=== PATIENT | female | born 1945 | race Caucasian/White ===

== ENCOUNTER 2016-08-27 05:42 | Outpatient (CLI) | payer MEDICARE, OTHER ==
[~2016-08-27] VITALS: Ht 154.9 cm; Wt 54.0 kg
[2016-08-27] MEDS ORDERED: LEVO50TA6 PO (13:56)
== END 2016-08-27 14:00 ==
LOC: PREOP 05:42
PROVIDERS: ATTEND Surgery Pediatric Surgery
DX: Z01.818 Encounter for other preprocedural examination (principal); Z12.11 Encounter for screening for malignant neoplasm of colon

== ENCOUNTER 2016-08-29 08:44 | Day surgery (SDC) | payer MEDICARE, OTHER ==
[~2016-08-29] VITALS: Ht 154.9 cm; Wt 54.0 kg
[~2016-08-29 08:44] MED LIST: LEVO50TA6 PO
[2016-08-29] MEDS ORDERED: NS IV 500 ML 500 ML ONE (08:59)
[2016-08-29] MEDS ORDERED: LIDOCAINE JELLY 2% (XYLOCAINE) 5 ML TUBE MM PRN (09:00)
[2016-08-29] MEDS ORDERED: NS IV 500 ML 500 ML IV SCH (09:00)
[2016-08-29] MEDS ORDERED: FLUMAZENIL (ROMAZICON) 0.1 MG/ML 5 ML VIAL INJ PRN (09:00)
[2016-08-29] MEDS ORDERED: NALOXONE 0.4 MG/ML 1 ML (NARCAN) VIAL IVP PRN (09:00)
[2016-08-29 09:09] VITALS: BP 122/78
[2016-08-29] MEDS ORDERED: MIDAZOLAM 2 MG/2 ML (VERSED) VIAL ONE ×2 (09:12)
[2016-08-29] MEDS ORDERED: LIDOCAINE JELLY 2% (XYLOCAINE) 5 ML TUBE ONE (09:13)
[2016-08-29] MEDS ORDERED: fentaNYL INJECTION 100 MCG/2 ML AMP ONE (09:13)
[2016-08-29] MEDS: fentaNYL INJECTION 100 MCG/2 ML AMP IVP PRN ×2 (09:48→09:57)
[2016-08-29] MEDS: MIDAZOLAM 2 MG/2 ML (VERSED) VIAL IVP PRN ×2 (09:50→10:00)
--- NOTE | 2016-08-29 09:51 | Conscious Sedation/ASA ---
Conscious Sedation Pre-Proced Time Reviewed: 09:40 ASA Class: 2 Airway Mallampati Classification: (platinum appropriate class) I. II. III, IV Lungs Heart ASA score ASA 1: a normal healthy patient ASA 2: a patient with a mild systemic disease (mid diabetes, controlled hypertension, obesity ASA 3: a patient with a severe systemic disease that limits activity (angina , COPD, prior Myocardial infarction) ASA 4: a patient with an incapacitating disease that is a constant threat to life (CHF, renal failure) ASA 5: a moribund patient not expected to survive 24 hrs. (ruptured aneurysm) ASA 6: a declared brain patient whose organs are being harvested. For emergent operations, add the letter E after the classification Grade 2 Sedation Plan: Analgesia, Amnesia, Plan communicated to team members, Discussed options with patient/fam, Discussed risks with patient/fam Note The patient is an appropriate candidate to undergo the planned procedure, sedation, and anesthesia. The patient immediately re-assessed prior to indication. FORTUNATO SIFUENTES MD Aug 29, 2016 9:51 am
--- NOTE | 2016-08-29 09:51 | Progress Note-Pre Operative ---
Pre-Operative Progress Note H&P Reviewed The H&P was reviewed, patient examined and no changes noted. Date Seen by Provider: Aug 29, 2016 Time Seen by Provider: 09:40 Date H&P Reviewed: Aug 29, 2016 Time H&P Reviewed: 09:40 Pre-Operative Diagnosis: screening colonoscopy FORTUNATO SIFUENTES MD Aug 29, 2016 9:51 am
[2016-08-29] MEDS ORDERED: ACETAMINOPHEN 325 MG TABLET/CAPLET (TYLENOL) PO PRN (10:00)
[2016-08-29] MEDS ORDERED: ONDANSETRON 4 MG/2 ML (SDV) Z0FRAN IV PRN (10:00)
[2016-08-29] MEDS ORDERED: HYDROcodone/APAP 5 MG/325 MG (LORTAB) TAB PO PRN (10:00)
[2016-08-29] MEDS ORDERED: morphine INJ 10 MG/ML 1ML (SYR OR VIAL) IV PRN (10:00)
[2016-08-29 10:30] VITALS: BP 109/66
--- NOTE | 2016-08-29 10:35 | Progress Note-Post Operative ---
Post-Operative Progess Note Surgeon (s)/Cage Tender (s) Surgeon FORTUNATO SIFUENTES MD Cage Tender: none Pre-Operative Diagnosis screening colonoscopy Post-Operative Diagnosis normal colon and rectum Procedure & Operative Findings Date of Procedure 08/29/16 Procedure Performed/Findings Colonoscopy Anesthesia Type CS Estimated Blood Loss Estimated blood loss (mL): minimal Specimens/Packing Specimens Removed none FORTUNATO SIFUENTES MD Aug 29, 2016 10:34 am
--- NOTE | 2016-08-29 10:37 | Discharge Inst-Surgical ---
D/C Lap Instructions-BEAR Follow Up 10 years Activity as tolerated High Fiber Diet 25g or more per day Avoid Alcohol, Caffeine, Spicy Gamaliel and Acid foods. Drink 64 fluid oz or more of fluids per day. Symptoms to Report: Fever over 101 degree F, Nausea/Vomiting If any problems/questions: Contact your physician or go to Emergency Room FORTUNATO SIFUENTES MD Aug 29, 2016 10:37 am
[2016-08-29 11:00] VITALS: BP 119/69
[2016-08-29 11:08] VITALS: BP 119/69
--- NOTE | 2016-08-29 11:40 | OPERATIVE REPORT ---
DATE OF SERVICE: 08/29/2016 ATTENDING PRIMARY CARE PHYSICIAN: Dr. Kayla Mckinley PREOPERATIVE DIAGNOSIS: Screening colonoscopy. POSTOPERATIVE DIAGNOSIS: Normal colon and rectum. PROCEDURE: Colonoscopy. SURGEON: Dr. Schmitt ANESTHESIA: Conscious sedation. ESTIMATED BLOOD LOSS: Minimal. FINDINGS: Normal anus, rectum and colon. No polyps or any neoplasms identified. DISPOSITION: The patient tolerated the procedure well. INDICATION FOR PROCEDURE: The patient is a 70-year-old female in need of a screening colonoscopy. She has not had a colonoscopy up to this point in her life. She reports that she is doing well and does not report any issues with diarrhea or constipation, as well as no red blood per rectum or any dark, tarry stools. She also does not report any family history of colon cancer. DESCRIPTION OF PROCEDURE: The patient was brought to the endoscopy suite, laid in the left lateral decubitus position. After adequate IV pain and sedative medications and conscious sedation anesthesia, a digital rectal examination was performed. No significant hemorrhoids were identified. Normal sphincter tone was felt and there were no palpable masses. The endoscope was then intubated into the anus and the rectum and gently insufflated. The endoscope was then advanced to the valves of Antony in the rectum with no polyps or any neoplasms identified. Through the sigmoid colon, no diverticulosis identified. We then proceeded through the remainder of the descending, transverse and ascending colon to the cecum. These segments were normal. There were no polyps or any neoplasms identified throughout the colon or rectum. The endoscope was then slowly withdrawn, taking a second look and suctioning of residual air with no additional findings. The patient tolerated the procedure well. We will have her continue with medical management with a high fiber diet with at least 25 g of fiber per day, as well as at least 64 fluid ounces of water daily to promote soft stools on a daily basis. She does not need another colonoscopy for another 10 years; however, sooner if any problems arise. Job ID: [id number] DocumentID: [id number] Dictated Date: 08/29/2016 10:29:18 Film Or Videotape Editor Date: 08/29/2016 11:39:23 Dictated By: FORTUNATO SCHMITT MD
== END 2016-08-29 11:09 | disposition home or self-care (01) ==
LOC: ENDO 08:44
PROVIDERS: ATTEND Surgery Pediatric Surgery
DX: Z12.11 Encounter for screening for malignant neoplasm of colon (principal); E03.9 Hypothyroidism, unspecified; E11.9 Type 2 diabetes mellitus without complications; Z79.899 Other long term (current) drug therapy

== ENCOUNTER → 2021-11-09 | Outpatient (CLI) | payer MEDICARE, OTHER ==
--- NOTE | 2021-11-09 16:26 | Diagnostic Imaging Report ---
INDICATION: Routine screening. Comparison is made with prior mammogram 11/03/2020 and 10/09/2019. 2-D and 3-D bilateral screening mammography was performed with CAD. Scattered fibroglandular densities are identified bilaterally. There are scattered benign parenchymal and vascular calcifications bilaterally. No mass or malignant-appearing microcalcifications are seen. Axillae are unremarkable. IMPRESSION: No mammographic features suspicious for malignancy are identified. ACR BI-RADS Category 2: Benign findings. Result letter will be mailed to the patient. Note: At least 10% of breast cancer is not imaged by mammography. BI-RADS Category 2 Dictated by: Dictated on workstation # [id number]
== END ==
LOC: RAD 10:47
PROVIDERS: ATTEND Obstetrics & Gynecology
DX: Z12.31 Encounter for screening mammogram for malignant neoplasm of breast (principal)
CPT/HCPCS: 77063; 77067